=== PATIENT | female | born 1935 | race Caucasian/White ===

== ENCOUNTER → 2016-09-30 | Outpatient (CLI) | payer MEDICARE ==
[~2016-09-30] MED LIST: ASCO-96 PO; CALC1CAP8 PO; CEFD300C2 PO; CHOL100018 PO; CYAN100074 PO; DOXY100C2 PO; FLUD0.1T PO; FOLI0.4T2 PO; GABA600T2 PO; HYDR-3240 PO; LEVO112T2 PO; LISI-167 PO; MAGN250T8 PO; MULT-516 PO; OMEG1CAP6 PO; OMNIPAQUE 350 MG/ML, 75ML BOTTLE ONE; ONDA4TAB7 PO
== END | disposition home or self-care (01) ==
LOC: CFH 12:02
PROVIDERS: ATTEND Internal Medicine Hematology & Oncology
DX: C34.11 Malignant neoplasm of upper lobe, right bronchus or lung (principal); J90 Pleural effusion, not elsewhere classified; J92.9 Pleural plaque without asbestos; Z92.3 Personal history of irradiation
CPT/HCPCS: 71260; Q9967

== ENCOUNTER → 2017-04-01 | Outpatient (CLI) | payer MEDICARE, OTHER ==
[~2017-04-01] MED LIST changes: -CEFD300C2 PO; +CEFD300C37 PO; +CHOL100012 PO; -CHOL100018 PO; +LIDOCAINE 1%, 20ML ONE; -OMNIPAQUE 350 MG/ML, 75ML BOTTLE ONE
== END | disposition home or self-care (01) ==
LOC: RAD 13:44
PROVIDERS: ATTEND Internal Medicine Hematology & Oncology
DX: C34.11 Malignant neoplasm of upper lobe, right bronchus or lung (principal); J90 Pleural effusion, not elsewhere classified
CPT/HCPCS: 32555; J3490

== ENCOUNTER → 2017-04-28 | Outpatient (CLI) | payer MEDICARE, OTHER ==
[~2017-04-28] MED LIST changes: -LIDOCAINE 1%, 20ML ONE; +LIDOCAINE 2%, 20ML ONE
== END | disposition home or self-care (01) ==
LOC: RAD 14:07
PROVIDERS: ATTEND Internal Medicine Hematology & Oncology
DX: C34.11 Malignant neoplasm of upper lobe, right bronchus or lung (principal)
CPT/HCPCS: 32555; J3490

== ENCOUNTER → 2017-09-02 | Outpatient (CLI) | payer MEDICARE, OTHER ==
[~2017-09-02] MED LIST changes: +LIDOCAINE 1%, 20ML ONE; -LIDOCAINE 2%, 20ML ONE
== END | disposition home or self-care (01) ==
LOC: RAD 12:14
PROVIDERS: ATTEND Internal Medicine Hematology & Oncology
DX: J90 Pleural effusion, not elsewhere classified (principal); C34.11 Malignant neoplasm of upper lobe, right bronchus or lung
CPT/HCPCS: 32555; J3490

== ENCOUNTER → 2017-09-22 | Outpatient (CLI) | payer MEDICARE, OTHER ==
[~2017-09-22] MED LIST changes: -LIDOCAINE 1%, 20ML ONE; +LIDOCAINE-MPF 1%, 5ML ONE
[2017-09-22 15:34] LABS: CELLS COUNTED 175
== END ==
LOC: RAD 13:11
PROVIDERS: ATTEND Internal Medicine Hematology & Oncology
DX: J91.0 Malignant pleural effusion (principal); C34.90 Malignant neoplasm of unspecified part of unspecified bronchus or lung
CPT/HCPCS: 32555; 71045; 84157; 88112; 88305; 89051

== ENCOUNTER → 2017-10-13 | Outpatient (CLI) | payer MEDICARE, OTHER ==
[~2017-10-13] MED LIST changes: -LIDOCAINE-MPF 1%, 5ML ONE
== END | disposition home or self-care (01) ==
LOC: RAD 14:55
PROVIDERS: ATTEND Internal Medicine Hematology & Oncology
DX: J90 Pleural effusion, not elsewhere classified (principal); C34.11 Malignant neoplasm of upper lobe, right bronchus or lung; R06.02 Shortness of breath; R09.02 Hypoxemia
CPT/HCPCS: 36415; 71260; 82565

== ENCOUNTER → 2017-10-14 | Outpatient (CLI) | payer MEDICARE, OTHER ==
[~2017-10-14] MED LIST changes: +LIDOCAINE 2%, 10ML ONE; +LIDOCAINE-MPF 1%, 5ML ONE
== END | disposition home or self-care (01) ==
LOC: RAD 13:20
PROVIDERS: ATTEND Internal Medicine Hematology & Oncology
DX: C34.11 Malignant neoplasm of upper lobe, right bronchus or lung (principal)
CPT/HCPCS: 32555; J3490

== ENCOUNTER → 2017-11-09 | Outpatient (CLI) | payer MEDICARE, OTHER ==
[~2017-11-09] MED LIST changes: +ALEC150C PO; -LIDOCAINE 2%, 10ML ONE; -LIDOCAINE-MPF 1%, 5ML ONE; +MULT-658 PO; +ZOLP10TA PO
== END | disposition home or self-care (01) ==
LOC: RAD 11:31
PROVIDERS: ATTEND Internal Medicine Hematology & Oncology
DX: C34.11 Malignant neoplasm of upper lobe, right bronchus or lung (principal); J90 Pleural effusion, not elsewhere classified; R07.89 Other chest pain
CPT/HCPCS: 32555

== ENCOUNTER 2017-11-14 11:26 | Inpatient (IN) | payer MEDICARE, OTHER ==
[~2017-11-14] VITALS: Ht 162.6 cm; Wt 54.7 kg
[2017-11-14] MEDS ORDERED: FURO40TA6 PO (11:40)
[2017-11-14] MEDS ORDERED: SODIUM CHLORIDE FLUSH 10ML SYR IVF ONE (12:00)
[2017-11-14 12:13] LABS: BASOPHILS # (AUTO) 0.02 x10^3/uL (0-0.1); BASOPHILS % (AUTO) 0 % (0-1); EOSINOPHILS # (AUTO) 0.01 x10^3/uL (0-0.4); EOSINOPHILS % (AUTO) 0 % (1-7); INTERNATIONAL NORMALIZED RATIO 0.97 (0.93-1.1); LYMPHOCYTES # (AUTO) 0.57 x10^3/uL (1-3.4); LYMPHOCYTES % (AUTO) 9 % (22-44); MD NO; MEAN CORPUSCULAR HEMOGLOBIN 32.4 pg (27.0-34.8); MEAN CORPUSCULAR HGB CONC 34.1 g/dL (32.4-35.8); MEAN CORPUSCULAR VOLUME 94.9 fL (80-100); MEAN PLATELET VOLUME 7.2 fL (7.4-10.4); MONOCYTES # (AUTO) 0.42 x10^3/uL (0.2-0.8); MONOCYTES % (AUTO) 7 % (2-9); NEUTROPHILS % (AUTO) 83 % (42-75); PLATELET COUNT 276 x10^3/uL (130-400); RED CELL DISTRIBUTION WIDTH 18.4 % (9.6-15.2)
[2017-11-14 12:17] LABS: ALBUMIN 2.5 g/dL (3.4-5.0); ANION GAP 5 mmol/L (5-15); CALCIUM 8.2 mg/dL (8.5-10.1); CHLORIDE 91 mmol/L (98-107); CREATININE 0.75 mg/dL (0.55-1.02)
[2017-11-14 12:20] LABS: TROPONIN I < 0.015 ng/mL (0.000-0.045)
[2017-11-14] MEDS ORDERED: SODIUM CHLORIDE FLUSH 10ML SYR IVF PRN (13:30)
[2017-11-14] MEDS ORDERED: ENALAPRILAT 1.25 MG/ML, 2ML IVPush PRN (14:00)
[2017-11-14] MEDS ORDERED: BISACODYL 10 MG SUPP PR PRN (14:00)
[2017-11-14] MEDS ORDERED: LABETALOL 5MG/ML, 20ML IVPush PRN (14:00)
[2017-11-14] MEDS ORDERED: DOCUSATE 100 MG CAPSULE PO PRN (14:00)
[2017-11-14] MEDS ORDERED: ACETAMINOPHEN 325 MG TABLET PO PRN (14:00)
[2017-11-14 14:24] VITALS: BP 123/73
[2017-11-14] MEDS ORDERED: FENTANYL PF 100 MCG/2ML ONE (15:23)
[2017-11-14] MEDS ORDERED: MIDAZOLAM 1 MG/ML, 5ML ONE (15:24)
[2017-11-14] MEDS ORDERED: CEFAZOLIN PMX 1GM/50ML 50 ML ONE (15:34)
[2017-11-14] MEDS ORDERED: ALECTINIB HCL PO SCH (16:00)
[2017-11-14 19:31] VITALS: BP 122/68
[2017-11-14] MEDS: FUROSEMIDE 40 MG TABLET PO SCH (19:43)
[2017-11-14] MEDS ORDERED: MORPHINE SULFATE 4 MG/ML, 1ML ONE (21:59)
[2017-11-14] MEDS: morphine SULFATE 10 MG/ML, 1ML IVPush PRN (22:03)
[2017-11-14] MEDS: ZOLPIDEM 10MG TABLET PO PRN (23:47)
[2017-11-15 02:53] VITALS: BP 104/62
[2017-11-15 04:38] LABS: BASOPHILS # (AUTO) 0.01 x10^3/uL (0-0.1); BASOPHILS % (AUTO) 0 % (0-1); EOSINOPHILS % (AUTO) 0 % (1-7); LYMPHOCYTES # (AUTO) 0.89 x10^3/uL (1-3.4); LYMPHOCYTES % (AUTO) 14 % (22-44); MD NO; MEAN CORPUSCULAR HEMOGLOBIN 32.9 pg (27.0-34.8); MEAN CORPUSCULAR HGB CONC 34.3 g/dL (32.4-35.8); MEAN CORPUSCULAR VOLUME 95.8 fL (80-100); MEAN PLATELET VOLUME 7.1 fL (7.4-10.4); MONOCYTES # (AUTO) 0.36 x10^3/uL (0.2-0.8); MONOCYTES % (AUTO) 6 % (2-9); NEUTROPHILS # (AUTO) 4.92 x10^3/uL (1.8-6.8); NEUTROPHILS % (AUTO) 80 % (42-75); PLATELET COUNT 241 x10^3/uL (130-400); RED BLOOD COUNT 2.62 x10^6/uL (3.82-5.3); RED CELL DISTRIBUTION WIDTH 18.9 % (9.6-15.2)
[2017-11-15 04:49] LABS: ANION GAP 6 mmol/L (5-15); CALCIUM 8.7 mg/dL (8.5-10.1); CHLORIDE 93 mmol/L (98-107)
[2017-11-15 04:51] LABS: CREATININE 0.87 mg/dL (0.55-1.02)
[2017-11-15] MEDS: LEVOTHYROXINE 112 MCG TABLET PO SCH (06:27)
[2017-11-15 07:21] VITALS: BP 113/62
[2017-11-15] MEDS ORDERED: ONDA4TAB10 PO (07:52)
[2017-11-15] MEDS ORDERED: METOCLOPRAMIDE 5 MG/ML, 2ML ONE (08:01)
[2017-11-15] MEDS: ONDANSETRON ODT 4 MG PO PRN ×2 (08:03→16:05)
[2017-11-15] MEDS: METOCLOPRAMIDE 5 MG/ML, 2ML IVPush PRN ×2 (08:03→17:47)
[2017-11-15] MEDS: MULTIVITAMIN 1 TABLET PO SCH (10:04)
[2017-11-15] MEDS: MAGNESIUM OXIDE 250 MG PO SCH (10:04)
[2017-11-15] MEDS: GABAPENTIN 400 MG CAPSULE PO SCH (10:04)
[2017-11-15] MEDS: CALCIUM/VITAMIN D3 250-125 TABLET PO SCH (10:04)
[2017-11-15] MEDS: CYANOCOBALAMIN 1,000 MCG TABLET PO SCH (10:05)
[2017-11-15] MEDS: SENNA/DOCUSATE TABLET PO SCH (10:05)
[2017-11-15] MEDS: LISINOPRIL 10 MG TABLET PO SCH (10:05)
[2017-11-15] MEDS: FUROSEMIDE 40 MG TABLET PO SCH ×2 (10:21→19:42)
[2017-11-15 12:42] VITALS: BP 101/55
[2017-11-15 17:39] LABS: IRON LEVEL 49 mcg/dL (50-170); TOTAL IRON BINDING CAPACITY 226 mcg/dL (250-450)
[2017-11-15 17:40] LABS: % IRON SATURATION 22 % (20-55)
[2017-11-15] MEDS: morphine SULFATE 10 MG/ML, 1ML IVPush PRN (18:44)
[2017-11-15 19:30] VITALS: BP 107/52
[2017-11-15] MEDS: ZOLPIDEM 10MG TABLET PO PRN (22:32)
[2017-11-16] MEDS ORDERED: MORPHINE SULFATE 4 MG/ML, 1ML ONE (02:06)
[2017-11-16] MEDS: morphine SULFATE 10 MG/ML, 1ML IVPush PRN (02:08)
[2017-11-16 02:20] VITALS: BP 97/53
[2017-11-16] MEDS: LEVOTHYROXINE 112 MCG TABLET PO SCH (05:08)
[2017-11-16 07:19] VITALS: BP 109/62
[2017-11-16] MEDS: MAGNESIUM OXIDE 250 MG PO SCH (08:42)
[2017-11-16] MEDS: MULTIVITAMIN 1 TABLET PO SCH (08:42)
[2017-11-16] MEDS: CALCIUM/VITAMIN D3 250-125 TABLET PO SCH (08:42)
[2017-11-16] MEDS: LISINOPRIL 10 MG TABLET PO SCH (08:42)
[2017-11-16] MEDS: CYANOCOBALAMIN 1,000 MCG TABLET PO SCH (08:42)
[2017-11-16] MEDS: FUROSEMIDE 40 MG TABLET PO SCH (08:42)
[2017-11-16] MEDS: GABAPENTIN 400 MG CAPSULE PO SCH (08:42)
[2017-11-16] MEDS: SENNA/DOCUSATE TABLET PO SCH (08:42)
== END 2017-11-16 11:26 | disposition home health service (06) | DRG 180 ==
LOC: ED 13:10 → EDIP 13:11 → ED 13:20 → 3NW 13:49
PROVIDERS: ADMIT Hospitalist; ATTEND Hospitalist
PROC: 0W9930Z Drainage of Right Pleural Cavity with Drainage Device, Percutaneous Approach (ICD-10-PCS; principal; 2017-11-15)
DX: C34.91 Malignant neoplasm of unspecified part of right bronchus or lung (principal); J96.01 Acute respiratory failure with hypoxia; J91.0 Malignant pleural effusion; E44.0 Moderate protein-calorie malnutrition; E87.1 Hypo-osmolality and hyponatremia; I50.9 Heart failure, unspecified; E03.9 Hypothyroidism, unspecified; I11.0 Hypertensive heart disease with heart failure; D64.9 Anemia, unspecified; D50.9 Iron deficiency anemia, unspecified; Z68.20 Body mass index [BMI] 20.0-20.9, adult; Z80.0 Family history of malignant neoplasm of digestive organs; Z80.1 Family history of malignant neoplasm of trachea, bronchus and lung; Z82.5 Family history of asthma and other chronic lower respiratory diseases; Z85.118 Personal history of other malignant neoplasm of bronchus and lung
CPT/HCPCS: 32550; 36415; 71045; 80048; 82040; 83540; 83550; 83605; 83880; 84484; 85025; 85610; 85730; 87040; 93005; 99285; J0690; J2250; J3010; Q0162; C1729; J2270; J2765